=== PATIENT | female | born 1945 | race Caucasian/White ===

== ENCOUNTER 2018-10-18 09:27 | Inpatient (IN) ==
--- NOTE | 2018-10-14 10:30 | History & Physical Report ---
Date of Service October 14, 2018 Date of Surgery: 10/18/18 Assessment & Plan (1) Osteoarthritis of right knee: Risks and benefits of procedure discussed in detail today, patient would like to proceed with a right total knee replacement on 10-18-18 @ [facility] as scheduled. will obtain medical clearance prior to surgery as well as obtain PATs at [facility]. Will place on ASA 81mg po bid x 1 month post op, f/u 2 weeks post op for routine post-operative care and xray, sooner if having any problems. will make arrangements for OPPT at the time of discharge. History of Present Illness Chief Complaint: right knee pain Primary Care Provider: Jena Anders Ms Trammell is a 73 year old female who complains of right knee pain, presents for pre-op evaluation prior to a right total knee replacement at [facility] on by dr gaming. She complains of pain, crepitus, decreased range of motion, stiffness, weakness and instability on the right side. She states that the symptoms have been chronic non-traumatic. The symptoms occur constantly with intermittent worsening. Currently the patient states that the symptoms are severe. The pain is described as aching and discomforting. The symptoms occur continuously. The symptoms are aggravated by ascending stairs, descending stairs, daily activities , first steps while awake, walking, standing and weight bearing. In addition to right knee pain the patient is also experiencing crepitus, decreased mobility, joint pain, limping, loss of motion and stiffness. currently rates her pain 5/10 , worst 8/10. Prior NSAIDs include ibuprofen and aleve. Prior pain medications include Tylenol. She has had a brace or splint. Allergies Allergy/AdvReac Type Severity Reaction Status Date / Time No Known Allergies Allergy Verified 10/12/18 11:34 Home Medications Home Medications Medication Instructions Recorded Confirmed Type acetaminophen [Acetaminophen Extra 500 mg PO Q6H PRN 10/12/18 10/12/18 History Strength] Past Med/Surg History Medical History GERD (gastroesophageal reflux disease) Osteoarthritis PONV (postoperative nausea and vomiting) Surgical History History of esophagogastroduodenoscopy (EGD) Hx of abscess of breast REMOVAL OF ABCESS Hx of gastric bypass LAP GASTRIC SLEEVE Family History Father No problems noted. Mother No problems noted. Social History Current Living Situation: Alone Other Information That Helps Us Care for You: No Feels Safe at Home: Yes Safety Concerns: Feels Safe At This Time Smoking Status: Never smoker Do You Dip or Chew Tobacco: No Second Hand Exposure: No Tobacco Cessation Education Requested by Patient: No Hx Alcohol Use: Yes Alcohol type: wine Alcohol Intake Frequency: holidays/ special occasions only Hx Substance Use: No Beliefs That Will Affect Care: None Preferred Language: Swiss Communication Ability: Effective Hospital Medical Biller Required: No Review of Systems All systems reviewed & are unremarkable except as noted in HPI & below Constitutional: no fever, no chills and no sweats Respiratory: no cough and no dyspnea Cardiovascular: no chest pain, no dyspnea and no orthopnea Gastrointestinal: no abdominal pain, no nausea and no vomiting Integumentary: no rash and no lesions Endocrine: no fatigue Physical Exam 2 Vital Signs (Past 24 Hours): Ht: 5ft 8in Wt: 87.5 kg BP: 144/84 Pulse: 80 Resp: 16 Constitutional: WD/WN, vitals as above no acute distress Respiratory: normal respiratory effort, lungs clear to auscultation no respiratory distress, no labored breathing and does not use accessory muscles Cardiovascular: Rate/Rhythm: regular rate and regular rhythm Heart Sounds: + murmur (Grade II/ systolic murmur) Gastrointestinal (Abdomen): normal bowel sounds, soft, nontender, no hepatosplenomegaly Musculoskeletal: Right Knee Exam she ambulates with a limp and has overall valgus alignment, there is no atrophy , warmth, erythema or ecchymosis, +1 Effusion, diffuse tenderness to her knee, greatest lateral compartment. negative patellar apprehension , mild crepitation with motion, patella position neutral, jose rafael's negative, Posterior drawer negative, Anterior drawer negative, Valgus stress Negative, Varus stress Negative, no Extensor lag, Pain with Active range of motion; Range of motion 0/3 /115. No pain with active/passive ROM of ankle. Lower Extremity Strength normal. Lower Extremity Neuro-vascular is normal Results & Data Diagnostic Findings right knee x-ray dated 2-8-19 showing advanced tricompartmental degenerative changes, greatest lateral compartment with valgus deformity, osteopenia noted as well. findings consistent with joint space narrowing, osteophyte formation. no loose bodies noted.
--- NOTE | 2018-10-14 14:52 | Anesthesiology Consultation ---
Date of Service October 14, 2018 Assessment & Plan (1) Encounter for pre-operative examination: Plan: PCP clearance 10/17/2018: Labs chest x-ray and EKG reviewed no acute changes. At this time there is no contraindication to upcoming proposed surgery patient is medically optimized for planned procedure. Chart Review Chart Review: Acceptable Risk for Surgery and Patient seen in Pre Admission Testing Teaching & Discussion Instructed NPO after midnight before surgery, except medications with 15 cc of water. Medication instructions provided according to the PAT guidelines. History Surgery Operation Date: 10/18/18 11:55 Proposed Procedures p Right Total Knee Arthroplasty - Nash Iverson DO Height/Weight Height: 5 ft 8 in Weight: 88.8 kg Allergies Allergy/AdvReac Type Severity Reaction Status Date / Time No Known Allergies Allergy Verified 10/12/18 11:34 Medications Home Medications Medication Instructions Recorded Confirmed Last Taken acetaminophen [Acetaminophen Extra 500 mg PO Q6H PRN 10/12/18 10/12/18 Unknown Strength] Past Medical History Medical History Aortic stenosis Mild per 2017 echo GERD (gastroesophageal reflux disease) Heart palpitations With assc dizziness. Had event monitor for 1 month 04/2018 and was told WNL, no events. Most recent episode was 07/2018. Osteoarthritis Past Family History Family History Father No problems noted. Mother No problems noted. Past Surgical History Surgical History History of esophagogastroduodenoscopy (EGD) Hx of abscess of breast REMOVAL OF ABCESS Hx of gastric bypass LAP GASTRIC SLEEVE PONV (postoperative nausea and vomiting) Past Anesthesia History No Hx of Anesthesia Complications (PONV) and No Family Hx of Anesthesia Complications (PONV) History of PONV Yes Motion Sickness Screening History of Motion Sickness: No Social History Smoking Status: Former smoker Smoking cigarettes per day: H/O 2-3 CIG PER DAY Do You Dip or Chew Tobacco: No Smoking End Date: QUIT 15 YRS AGO Hx Alcohol Use: Yes Alcohol type: wine alcohol intake frequency: holidays/special occasions only Hx Substance Use: No substance use type: does not use Exercise / Class Metabolic Activity II 4-5 Yardwork/Stairs/Walk up hill (Denies CP and SOB with stairs but currently limited by pain) Review of Systems Pt denies any recent chest pain, shortness of breath, palpitations, cough, fever or URI. + "spider bite" on L calf, healing Physical Exam Vital Signs BP: 152/79 (pt seen by PCP on Wednesday and BP was WNL) P: 73bpm SPO2: 97% RA T: 98.2 F R: 16 ENMT Mouth: + dentition abnormality (two crowns that fell off of root canals), + dentures (upper and lower partials) and + small oral opening; no loose teeth Thyromental Distance: > or= 3.5 Finger Breadths (3.5) Mallampati Class: III Neck normal visual inspection; neck extension not limited 3 inch scar around L carotid is from CURLING IRON Respiratory normal respiratory effort Auscultation: lungs clear to auscultation bilaterally Cardiovascular Rate/Rhythm: regular rate and regular rhythm Heart Sounds: + murmur (II/ ADONIS loudest at RSB with radiation to B/L carotids) Vessels: + carotid bruit (radiation from ) Extremities: no edema Testing Electrocardiogram Date: 10/14/18 Findings: + NSR @ (74) Cannot rule out anterior infarct, age undetermined. *Patient was unable to lay flat for procedure 2/2 knee pain Chest X-Ray Date: 10/14/18 Findings: + NAD Echocardiogram Date: 08/24/17 EF: 60-65% Mild aortic stenosis. RADHA is 1.15 cm�, which is probably an underestimation of the true valve area. Aortic valve area is 1.41 cm� by direct planimetry. Left ventricle is normal in size, wall thickness, wall motion, and contractility. Laboratory Results 10/14/18 14:43 10/14/18 14:43 Blood Type O Positive 10/14/18 14:43 Antibody Screen NEGATIVE 10/14/18 14:43 PT 10.7 Seconds (9.0-12.0) 10/14/18 14:43 INR 1.1 (0.9-1.1) 10/14/18 14:43 APTT 27.1 Seconds (21.0-31.0) 10/14/18 14:43 Hemoglobin A1c 5.2 % (4.5-5.6) 10/14/18 14:43 Urine Color Yellow 10/14/18 14:43 Urine Appearance Clear (Clear) 10/14/18 14:43 Urine pH 7.5 (4.5-7.5) 10/14/18 14:43 Ur Specific [place] 1.024 (1.000-1.030) 10/14/18 14:43 Urine Protein Negative (Negative) 10/14/18 14:43 Urine Glucose (UA) Negative (Negative) 10/14/18 14:43 Urine Ketones Negative (Negative) 10/14/18 14:43 Urine Nitrite Negative (Negative) 10/14/18 14:43 Ur Leukocyte Esterase Negative (Negative) 10/14/18 14:43 Urine WBC (Auto) 1-5 /hpf (0-5) 10/14/18 14:43 Urine RBC (Auto) 5-10 /hpf (0-4) H 10/14/18 14:43 U Hyaline Cast (Auto) 0 /lpf (0-5) 10/14/18 14:43 U Epithel Cells (Auto) 20-30 /lpf (0-5) H 10/14/18 14:43 Urine Bacteria (Auto) Negative (Negative) 10/14/18 14:43 10/14/18 14:43 Urine Culture - Final Urine,Clean Catch More than three types of organisms present, all high counts mixed probable skin asa - No further identifications or sensitivities to follow.
--- NOTE | 2018-10-14 14:54 | PAT Medication Instructions ---
Medication Instructions Date of Service October 14, 2018 Home Medications acetaminophen [Acetaminophen Extra Strength] 500 mg PO Q6H PRN Take morning of surgery With a small sip of water, OTHERWISE NOTHING TO EAT OR DRINK AFTER MIDNIGHT: acetaminophen [Acetaminophen Extra Strength] 500 mg PO Q6H PRN (if needed, may be taken up to four hours before surgery) Other Notes If you have any questions please call us at [phone] or [phone] or [phone] or [phone]
[2018-10-14 15:52] LABS: Appearance Urine Clear (Clear); Bacteria Urine Automated Negative (Negative); Bilirubin Urine Negative (Negative); Cast Urine Automated 0 /lpf (0-5); Color Urine Yellow; Epithelial Cell Urine Auto 20-30 /lpf (0-5); Glucose Urine UA Negative (Negative); Ketones Urine Negative (Negative); Leukocyte Esterase Urine Negative (Negative); Nitrite Urine Negative (Negative); Protein Urine Negative (Negative); Specific Gravity Urine 1.024 (1.000-1.030); Urobilinogen Urine Negative (Negative); pH Urine 7.5 (4.5-7.5)
[2018-10-14 15:53] LABS: Calcium 8.6 mg/dl (8.5-10.1); Creatinine Clr Calc Pharmacy 69.8 ml/min; Est GFR (African American) 79.3; Est GFR (Non-African American) 68.5; Potassium 3.9 mmol/L (3.5-5.1)
[2018-10-14 15:56] LABS: Basophils # (auto) 0.01 K/uL (0-0.2); Basophils % (auto) 0.2 %; Eosinophils # (auto) 0.08 K/uL (0-0.5); Eosinophils % (auto) 1.4 %; Hematocrit (blood only) 39.6 % (37-47); Hemoglobin 12.2 g/dL (12.0-16.0); Immature Granulocytes # (auto) 0.02 K/uL (0.00-0.02); Immature Granulocytes % (auto) 0.3 %; Lymphocytes % (auto) 20.7 %; Mean Corpuscular Hgb Conc 30.8 g/dL (32-36); Mean Corpuscular Volume 83.2 fL (80-100); Mean Platelet Volume 9.7 fL (7.4-10.4); Monocytes # (auto) 0.46 K/uL (0.11-0.59); Monocytes % (auto) 7.9 %; Neutrophils # (auto) 4.04 K/uL (1.4-6.5); Neutrophils % (auto) 69.5 %; Platelet Count 244 K/uL (130-400); RDW Coefficient of Variation 15.1 % (11.5-14.5); RDW Standard Deviation 46.4 fL (36.4-46.3); Red Blood Count 4.76 M/uL (4.2-5.4); White Blood Count 5.81 K/uL (4.8-10.8)
[2018-10-14 15:57] LABS: INR 1.1 (0.9-1.1); Partial Thromboplastin Time 27.1 Seconds (21.0-31.0); Prothrombin Time 10.7 Seconds (9.0-12.0)
--- NOTE | 2018-10-14 15:57 | XRay Report ---
XR chest Pre-admission PA/Lat CLINICAL HISTORY: Preoperative chest COMPARISON STUDY: No previous studies for comparison. FINDINGS: The cardiac and mediastinal contours are normal. There is no evidence of focal pulmonary co nsolidation. There is no evidence of failure. No pleural effusions are visualized.[ IMPRESSION: No active disease in the chest. Electronically signed by: Tl Weston M.D. 10/14/2018 3:56 PM
[2018-10-15 06:46] LABS: Estimated Average Glucose 103 mg/dl
[~2018-10-18 09:27] MED LIST: ACETAMINOPHEN 500 MG TAB PO SCH; BUPIVACAINE 0.5 % 5 MG/1 ML PF 10ML VIAL ONE; CEFAZOLIN 2000MG 2,000 MG/15 ML SYR IV SCH; CeleBREX 200 MG CAP PO SCH; FAMOTIDINE 20 MG TAB PO SCH; GABAPENTIN 300 MG PO SCH; LR 500ML BOLUS, THEN 15ML/HR IV SCH; ROPIVACAINE 0.5% 5 MG/ML 30 ML VIAL ONE; ROPIVACAINE 0.5% HCL/PF 150 MG, BUPIVACAINE 0.5% MPF 30 ML, EPINEPHrine 30MG/30ML (OR U... INFIL SCH; TRANEXAMIC ACID 1,000 MG **IV Intra-op IV SCH; TRANEXAMIC ACID 1,000 MG **IV Pre-op IV SCH; dexAMETHasone 4 MG TAB PO SCH
[2018-10-18] MEDS ORDERED: MIDAZOLAM HCL 1 MG/ML 2ML VIAL ONE (09:39)
--- NOTE | 2018-10-18 10:24 | History & Physical Bridge Note ---
Date of Service October 18, 2018 History & Physical Bridge Note I have examined the patient, reviewed the History & Physical and in the interval since the performance of the History & Physical I have noted the following changes of clinical significance: no changes noted
[2018-10-18] MEDS ORDERED: BACITRACIN INJ 50,000 UNIT VIAL ONE (11:01)
[2018-10-18] MEDS ORDERED: POVIDONE-IODINE OP SOLN 30 ML BTL ONE (11:01)
[2018-10-18] MEDS ORDERED: ORTHO JOINT ANESTHETIC ONE (11:01)
[2018-10-18] MEDS ORDERED: DEXAMETHASONE SOD INJ 4 MG/ML VIAL ONE (12:04)
[2018-10-18] MEDS ORDERED: ONDANSETRON INJ 2 MG/ML 2 ML VIAL ONE (12:04)
[2018-10-18] MEDS ORDERED: PROPOFOL IV EMULSION 10 MG/ML 20 ML VIAL IV ONE (12:04)
[2018-10-18] MEDS ORDERED: fentaNYL citrate 100 MCG/2 ML VIAL IV PRN (12:06)
[2018-10-18] MEDS ORDERED: ATROPINE SULFATE 0.1 MG/ML 10ML SYR IV PRN (12:06)
[2018-10-18] MEDS ORDERED: ePHEDrine sulfate 50 MG/ML AMP IV PRN (12:06)
[2018-10-18] MEDS ORDERED: ONDANSETRON INJ 2 MG/ML 2 ML VIAL IV PRN ×2 (12:06→14:20)
--- NOTE | 2018-10-18 12:40 | Operative Report ---
Post Operative Report Pre & Post Diagnosis Operation Date: 10/18/18 11:55 Pre-Op Diagnosis: Unilateral Primary Osteoarthritis, Right Knee Post-Op Diagnosis: Unilateral Primary Osteoarthritis, Right Knee Procedure Operation Date: 10/18/18 11:55 Actual Procedures p Right Total Knee Arthroplasty(Right) utilizing Young [employer] Nephew journey to non- bloc total knee arthroplasty size 6 femur 6 tibia 9 polyethylene 32 oval patella - Nash Iverson DO Surgeon Nash Iverson DO Possum Trapper Jose Juan PHAM Estimated Blood Loss 5 Findings Consistent with Post-Op Diagnosis Patient presents with severe end-stage DJD valgus alignment of the right knee with [id number] lateral compartment [id number] medial compartment pseudo- ligamentous laxity due to the valgus alignment bone loss subchondral cystic changes marginal osteophytes all no response to conservative management Specimens Bone and cartilage Drains Medium bore Hemovac Complications none Disposition Accompanied Patient To Recovery: No Disposition: Recovery Room Indications Patient presents with severe end-stage DJD valgus alignment right including physical therapy anti-inflammatories manager of finance bracing corticosteroid injections Visco supplementation patient has the above significant severe valgus alignment of 10 degrees to the right knee as noted above with a subchondral cystic changes marginal osteophytes [id number] eburnation with loss of tibial bone laterally Description of Procedure After proper prepping and draping of the Right lower extremity anterior midline incision was made over the region of the extensor extensor mechanism after meticulous hemostasis was obtained and maintained in subcutaneous tissues a medial parapatellar incision was made The patella was subluxed lateralward the medial lateral gutter were cleaned from any hypertrophic synovitis and scar tissue of the distal femoral block was placed and the distal femoral osteotomy cut was made subsequently the chamfers anterior and posterior osteotomy cuts were made utilizing the 4-in-1 block the tibia was subsequently subluxed anteriorward medial and ateral meniscal remnants were excised in their entirety remnants of the anterior and posterior cruciate ligaments were excised in their entirety excellent exposure of the proximal tibia was obtained the tibial osteotomy guide was placed on the proximal tibial osteotomy cut was made once again the knee was irrigated with copious amounts of sterile saline solution the patella was subsequently everted lateralward thickened scar tissue around the patella was removed the patella was subsequently cut utilizing a freehand technique and was drilled prepared for final preparation and placement of patella socially flexion-extension gaps were checked and the equal and symmetric trials were placed to the appropriate femoral and tibial trials with poly-spacer being placed for equal flexion and extension gaps and full range of motion including extension to 0 and flexion to 140� the trial components after having been taken to recovery range of motion was subsequently removed meticulous hemostasis was obtained and maintained subsequently a knee block injection of joint cocktail including ropivacaine 0.5% 150 mg. Bupivacaine 0.5 % epinephrine 1-200,030 mL's toradol 30 mg dexamethasone 4 mg ketamine 10 mg clonidine 100 micrograms normal saline solution 30 mg was infiltrated into the soft tissues of the posterior knee medial lateral gutters and periosteal synovium special attention was paid to protect neurovascular structures at all times subsequently trial components having been removed the knee was irrigated with sterile saline solution. debris was removed the proximal tibia was subsequently prepared and was made ready for the placement of the tibial component tibial component was also cemented and tamped into position the femoral component was subsequently placed and cemented in the position the patellar component was subsequently cemented in position because hemostasis once again obtained and maintained wound having been thoroughly irrigated with debridement and debridement lavage was performed as well as a medial parapatellar incision closed with #1 Vicryl in interrupted fashion subcutaneous was closed with #2 Vicryl skin was closed with skin clips. PA-C was necessary for prepping and drapping as well as wound closure of deep fascia Sub cutaneous tissue and skin and was necessary for the case. A sterile compressive dressing was placed patient was taken to recovery in stable condition of report dictated by Kishor I attest to the content of the Intraoperative Record and any orders documented therein. Any exceptions are noted below. I attest to the content of the Intraoperative Record and any orders documented therein. Any exceptions are noted below.
--- NOTE | 2018-10-18 13:43 | XRay Report ---
XR knee RT 2V routine CLINICAL HISTORY: 73 years-old Female presenting with Surgical Post Op. TECHNIQUE: Frontal and crosstable lateral views of the right knee were obtained. COMPARISON: None. FINDINGS: Postsurgical changes of total right knee arthroplasty with patellar resurfacing. Expected intra-artic ular and soft tissue emphysema. A surgical drain is in place. Overlying skin earl. Possible underl jace osteopenia. No malalignment. Subtle lucency along the posterior distal metaphysis of the femur o n lateral view. It is difficult to exclude a subtle periprosthetic fracture.. IMPRESSION: 1. Irregularity of the posterior aspect of the distal metaphysis of the femur. Subtle periprosthetic fracture not excluded. CT of the knee could be obtained for further evaluation. 2. No other hardware complication of the postsurgical changes of the total right knee arthroplasty w ith patellar resurfacing. The report will be called/faxed according to standard departmental protocol. Electronically signed by: Nicholas Noonan M.D. 10/18/2018 1:41 PM
--- NOTE | 2018-10-18 14:15 | Anesthesiology Progress Note ---
Date of Service October 18, 2018 Anesthesia Post Procedure Vital Signs Vital Signs: Temp Pulse Pulse Resp BP BP Pulse Ox 10/18/18 14:00 72 12 132/73 99 10/18/18 13:45 37.5 C 70 12 138/73 100 10/18/18 13:35 72 12 141/74 H 100 10/18/18 13:25 74 15 134/65 99 10/18/18 13:17 37.1 C 86 16 109/66 100 10/18/18 10:32 36.9 C 77 20 171/71 H 99 Pain Intensity Right Knee: Pain Intensity: 0 Notes Mental Status: alert / awake / arousable Patient Amnestic to Procedure: Yes Nausea / Vomiting: adequately controlled Pain: adequately controlled Airway Patency, RR, SpO2: stable & adequate BP & HR: stable & adequate Hydration State: stable & adequate Neuraxial Anesthesia: was administered and sensory block is resolving Anesthetic Complications: no major complications apparent and Pt Satisfied with anesthetic care
[2018-10-18] MEDS ORDERED: METOCLOPRAMIDE HCL INJ 5 MG/ML 2 ML VIAL IV PRN (14:20)
[2018-10-18] MEDS ORDERED: HYDROmorphone INJ 0.5 MG/0.5 ML SYR IV PRN (14:20)
[2018-10-18] MEDS ORDERED: BISACODYL 10 MG SUPP PR PRN (14:20)
[2018-10-18] MEDS ORDERED: NALOXONE HCL 0.4 MG/1 ML VIAL/CARP IV PRN (14:20)
[2018-10-18] MEDS ORDERED: MAGNESIUM HYDROXIDE SUSP 30 ML UDC PO PRN (14:20)
--- NOTE | 2018-10-18 17:06 | CT Scan Report ---
RIGHT KNEE CT CT DOSE: 450.74 mGy.cm HISTORY: Abnormal x-ray. r/o periprosthetic fx TECHNIQUE: Multiaxial CT images of the right knee were performed and reformatted in the sagittal and coronal plane without the use of contrast. A dose lowering technique was utilized adhering to the pr inciples of RUDY. COMPARISON: Right knee 10/18/2018. FINDINGS: Patient is status post right total knee arthroplasty. Subtle cortical lucency along the pos terior aspect of the distal femoral metaphysis corresponding to the radiographic abnormality. This ap pears to represent a tiny nondisplaced fracture. This is approximately 1 cm proximal to the lateral f emoral condyle prosthesis. The visualized tibia and fibula are intact. No fractures within the patell a. Anterior skin earl are noted. Surgical drains are seen within the suprapatellar space. Moderate suprapatellar hemarthrosis. Scattered soft tissue gas within the knee and anterior subcutaneous hemo rrhage consistent with postoperative change. The hardware appears to be in good position. IMPRESSION: Confirmation of a tiny nondisplaced fracture along the posterior lateral aspect of the distal femoral metaphysis. Electronically signed by: Perry Laguna M.D. 10/18/2018 5:05 PM
[2018-10-18] MEDS: FERROUS GLUCONATE 324 MG TAB PO SCH (17:07)
[2018-10-18] MEDS: ACETAMINOPHEN 500 MG TAB PO SCH ×2 (17:07→21:23)
[2018-10-18] MEDS: OXYCODONE HCL IR 5 MG TAB (IMMEDIATE RELEASE) PO PRN ×2 (20:09→21:21)
[2018-10-18] MEDS: CEFAZOLIN 2000MG 2,000 MG/15 ML SYR IV SCH (20:09)
[2018-10-18] MEDS: ASPIRIN 81 MG ECTAB PO SCH (20:10)
[2018-10-18] MEDS: SENNA 8.6 MG TAB PO SCH (20:13)
[2018-10-18] MEDS: DOCUSATE SODIUM 100 MG CAP PO SCH (20:13)
[2018-10-18] MEDS: SODIUM CHLORIDE 0.9% 1000ML 1,000 ML IV SCH (20:40)
[2018-10-19] MEDS: OXYCODONE HCL IR 5 MG TAB (IMMEDIATE RELEASE) PO PRN ×4 (02:33→20:23)
[2018-10-19] MEDS: CEFAZOLIN 2000MG 2,000 MG/15 ML SYR IV SCH (03:35)
[2018-10-19] MEDS ORDERED: MICONAZOLE NITRATE POWDER 43 GM EXT PRN (05:06)
[2018-10-19] MEDS: ACETAMINOPHEN 500 MG TAB PO SCH ×3 (05:45→21:20)
[2018-10-19] MEDS: SODIUM CHLORIDE 0.9% 1000ML 1,000 ML IV SCH (05:52)
[2018-10-19 07:11] LABS: Hematocrit (blood only) 36.2 % (37-47); Hemoglobin 11.2 g/dL (12.0-16.0); Mean Corpuscular Hgb Conc 30.9 g/dL (32-36); Mean Corpuscular Volume 82.5 fL (80-100); Mean Platelet Volume 9.2 fL (7.4-10.4); Platelet Count 221 K/uL (130-400); RDW Coefficient of Variation 15.1 % (11.5-14.5); RDW Standard Deviation 45.4 fL (36.4-46.3); Red Blood Count 4.39 M/uL (4.2-5.4); White Blood Count 12.81 K/uL (4.8-10.8)
[2018-10-19 07:46] LABS: BUN Creatinine Ratio 20.5 (10-20); Calcium 8.3 mg/dl (8.5-10.1); Creatinine Clr Calc Pharmacy 66.7 ml/min; Est GFR (African American) 77.1; Est GFR (Non-African American) 66.6; Potassium 3.8 mmol/L (3.5-5.1)
--- NOTE | 2018-10-19 08:01 | Orthopedic Progress Note ---
Date of Service October 19, 2018 Assessment & Plan (1) Osteoarthritis of right knee: Postop day 1 status post right total knee arthroplasty with noted tiny cortical fracture of the posterior lateral cortex of the distal femur. X-rays and CT scans have been reviewed by Dr. Iverson. Plans will be to make the patient nonweightbearing on the right lower extremity. We will consult Hao Earl from orthotics to place a hinged [place] brace on the right lower extremity locked from 0-90 degrees so the patient can continue her range of motion protocol with her PT. This plan has been reviewed with the patient and her daughter who are in agreement. Dr. Iverson will be seeing the patient later this afternoon for recheck. DVT prophylaxis with SCDs, ANDERSON hose, aspirin twice daily Pain management with acetaminophen, oxycodone, hydromorphone. Subjective Postop day 1 status post right total knee arthroplasty. Patient is sleeping upon arrival but is easily awoken. She is pleasant and is alert and oriented. Her daughter is currently with her at this time. It was found postoperatively that she had a very small fracture noted in the posterior lateral cortex of the distal femur on plain film x-ray. A CT scan was then ordered to confirm. CT results as per below. Confirming very small cortical fracture. This was discussed in detail with the patient last night and also this morning. She and her daughter understand the plan will be laid out for due to this fracture. Currently she has no shortness of breath, chest pain, lightheadedness. She does complain of some posterior knee and slight proximal thigh pain this morning. She has no other complaints at this time. Physical Exam 2 Vital Signs (Past 24 Hours): Last Vital Signs Temp 36.9 C 10/19/18 06:59 Pulse 76 10/19/18 06:59 Resp 18 10/19/18 06:59 BP 139/79 10/19/18 06:59 Pulse Ox 97 10/19/18 06:59 Physical Exam: Dressings are clean, dry, and intact. Calves are soft and nontender. On palpation of the posterior knee and thigh, she has some mild pain that is posterior medially mainly over the thigh. Homans exam is essentially negative at this time. She has no overt swelling of the foot at this time. Hemovac drainage is 100 mL's from the previous shift. Neurovascular is intact and toes are mobile. Results & Data Laboratory Results 10/19/18 10/19/18 Range/Units 07:00 07:00 WBC 12.81 H (4.8-10.8) K/uL RBC 4.39 (4.2-5.4) M/uL Hgb 11.2 L (12.0-16.0) g/dL Hct 36.2 L (37-47) % MCV 82.5 (80-100) fL MCH 25.5 (25-34) pg MCHC 30.9 L (32-36) g/dL RDW Std Deviation 45.4 (36.4-46.3) fL RDW Coeff of Yoandy 15.1 H (11.5-14.5) % Plt Count 221 (130-400) K/uL MPV 9.2 (7.4-10.4) fL Sodium 140 (136-145) mmol/L Potassium 3.8 (3.5-5.1) mmol/L Chloride 106 (98-107) mmol/L Carbon Dioxide 27 (21-32) mmol/L Anion Gap 6.0 (3-11) BUN 18 (7-18) mg/dl Creatinine 0.87 (0.6-1.2) mg/dl Est Cr Clr Drug Dosing 66.7 ml/min Est GFR ( Amer) 77.1 Est GFR (Non-Af Amer) 66.6 BUN/Creatinine Ratio 20.5 H (10-20) Glucose 121 H (70-99) mg/dl Calcium 8.3 L (8.5-10.1) mg/dl Diagnostic Findings RIGHT KNEE CT CT DOSE: 450.74 mGy.cm HISTORY: Abnormal x-ray. r/o periprosthetic fx TECHNIQUE: Multiaxial CT images of the right knee were performed and reformatted in the sagittal and coronal plane without the use of contrast. A dose lowering technique was utilized adhering to the principles of ALARA. COMPARISON: Right knee 10/18/2018. FINDINGS: Patient is status post right total knee arthroplasty. Subtle cortical lucency along the posterior aspect of the distal femoral metaphysis corresponding to the radiographic abnormality. This appears to represent a tiny nondisplaced fracture. This is approximately 1 cm proximal to the lateral femoral condyle prosthesis. The visualized tibia and fibula are intact. No fractures within the patella. Anterior skin earl are noted. Surgical drains are seen within the suprapatellar space. Moderate suprapatellar hemarthrosis. Scattered soft tissue gas within the knee and anterior subcutaneous hemorrhage consistent with postoperative change. The hardware appears to be in good position. IMPRESSION: Confirmation of a tiny nondisplaced fracture along the posterior lateral aspect of the distal femoral metaphysis.
[2018-10-19] MEDS: FERROUS GLUCONATE 324 MG TAB PO SCH ×2 (09:20→16:31)
[2018-10-19] MEDS: MULTIVITAMIN TAB PO SCH (09:20)
[2018-10-19] MEDS: ASPIRIN 81 MG ECTAB PO SCH ×2 (09:21→20:30)
[2018-10-19] MEDS: DOCUSATE SODIUM 100 MG CAP PO SCH ×2 (09:21→20:30)
[2018-10-19] MEDS: SENNA 8.6 MG TAB PO SCH (20:30)
[2018-10-20] MEDS: ACETAMINOPHEN 500 MG TAB PO SCH ×2 (05:43→13:31)
--- NOTE | 2018-10-20 07:38 | Orthopedic Progress Note ---
Date of Service October 20, 2018 Assessment & Plan (1) Osteoarthritis of right knee: Postop day 2 status post right total knee arthroplasty with noted tiny cortical fracture of the posterior lateral cortex of the distal femur. X-rays and CT scans have been reviewed by Dr. Iverson. Plans will be to make the patient nonweightbearing on the right lower extremity. she has been fit for her brace, gentle ROM 0-90, NWB with walker/crutches. may remove the brace while not ambulating. DVT prophylaxis with SCDs, ANDERSON hose, aspirin twice daily Pain management with acetaminophen, oxycodone, hydromorphone. Plan on discharge home later today with HHPT Subjective Postop day 2 status post right total knee arthroplasty. she denies CP/SOB, denies fever/chills, denies N/V Physical Exam 2 Vital Signs (Past 24 Hours): Last Vital Signs Temp 36.8 C 10/20/18 06:56 Pulse 78 10/20/18 06:56 Resp 18 10/20/18 06:56 BP 108/67 10/20/18 06:56 Pulse Ox 95 10/20/18 06:56 Constitutional: WD/WN, vitals as above no acute distress Musculoskeletal: Right lower extremity: NVDI, calf SNT, negative abram sign. DP palpable, able to wiggle toes/ankle movement without difficulty. dressing clean dry and intact. expected post-operative bruising noted. Results & Data Laboratory Results Laboratory Results WBC 12.81 K/uL (4.8-10.8) H 10/19/18 07:00 RBC 4.39 M/uL (4.2-5.4) 10/19/18 07:00 Hgb 11.2 g/dL (12.0-16.0) L 10/19/18 07:00 Hct 36.2 % (37-47) L 10/19/18 07:00 MCV 82.5 fL (80-100) 10/19/18 07:00 MCH 25.5 pg (25-34) 10/19/18 07:00 MCHC 30.9 g/dL (32-36) L 10/19/18 07:00 RDW Std Deviation 45.4 fL (36.4-46.3) 10/19/18 07:00 RDW Coeff of Yoandy 15.1 % (11.5-14.5) H 10/19/18 07:00 Plt Count 221 K/uL (130-400) 10/19/18 07:00 MPV 9.2 fL (7.4-10.4) 10/19/18 07:00 Immature Gran % (Auto) 0.3 % 10/14/18 14:43 Neut % (Auto) 69.5 % 10/14/18 14:43 Lymph % (Auto) 20.7 % 10/14/18 14:43 Dewitt % (Auto) 7.9 % 10/14/18 14:43 Eos % (Auto) 1.4 % 10/14/18 14:43 Baso % (Auto) 0.2 % 10/14/18 14:43 Immature Gran # (Auto) 0.02 K/uL (0.00-0.02) 10/14/18 14:43 Neut # (Auto) 4.04 K/uL (1.4-6.5) 10/14/18 14:43 Lymph # (Auto) 1.20 K/uL (1.2-3.4) 10/14/18 14:43 Dewitt # (Auto) 0.46 K/uL (0.11-0.59) 10/14/18 14:43 Eos # (Auto) 0.08 K/uL (0-0.5) 10/14/18 14:43 Baso # (Auto) 0.01 K/uL (0-0.2) 10/14/18 14:43 PT 10.7 Seconds (9.0-12.0) 10/14/18 14:43 INR 1.1 (0.9-1.1) 10/14/18 14:43 APTT 27.1 Seconds (21.0-31.0) 10/14/18 14:43 PTT Ratio 1.0 10/14/18 14:43 Sodium 140 mmol/L (136-145) 10/19/18 07:00 Potassium 3.8 mmol/L (3.5-5.1) 10/19/18 07:00 Chloride 106 mmol/L (98-107) 10/19/18 07:00 Carbon Dioxide 27 mmol/L (21-32) 10/19/18 07:00 Anion Gap 6.0 (3-11) 10/19/18 07:00 BUN 18 mg/dl (7-18) 10/19/18 07:00 Creatinine 0.87 mg/dl (0.6-1.2) 10/19/18 07:00 Est Cr Clr Drug Dosing 66.7 ml/min 10/19/18 07:00 Est GFR ( Amer) 77.1 10/19/18 07:00 Est GFR (Non-Af Amer) 66.6 10/19/18 07:00 BUN/Creatinine Ratio 20.5 (10-20) H 10/19/18 07:00 Glucose 121 mg/dl (70-99) H 10/19/18 07:00 Estimat Average Glucose 103 mg/dl 10/14/18 14:43 Hemoglobin A1c 5.2 % (4.5-5.6) 10/14/18 14:43 Calcium 8.3 mg/dl (8.5-10.1) L 10/19/18 07:00 Urine Color Yellow 10/14/18 14:43 Urine Appearance Clear (Clear) 10/14/18 14:43 Urine pH 7.5 (4.5-7.5) 10/14/18 14:43 Ur Specific Irma 1.024 (1.000-1.030) 10/14/18 14:43 Urine Protein Negative (Negative) 10/14/18 14:43 Urine Glucose (UA) Negative (Negative) 10/14/18 14:43 Urine Ketones Negative (Negative) 10/14/18 14:43 Urine Blood Trace (Negative) H 10/14/18 14:43 Urine Nitrite Negative (Negative) 10/14/18 14:43 Urine Bilirubin Negative (Negative) 10/14/18 14:43 Urine Urobilinogen Negative (Negative) 10/14/18 14:43 Ur Leukocyte Esterase Negative (Negative) 10/14/18 14:43 Urine WBC (Auto) 1-5 /hpf (0-5) 10/14/18 14:43 Urine RBC (Auto) 5-10 /hpf (0-4) H 10/14/18 14:43 U Hyaline Cast (Auto) 0 /lpf (0-5) 10/14/18 14:43 U Epithel Cells (Auto) 20-30 /lpf (0-5) H 10/14/18 14:43 Urine Bacteria (Auto) Negative (Negative) 10/14/18 14:43 Blood Type O Positive 10/14/18 14:43 Antibody Screen NEGATIVE 10/14/18 14:43 Vital Signs Temp 36.8 C 10/20/18 06:56 Pulse 78 10/20/18 06:56 Resp 18 10/20/18 06:56 BP 108/67 10/20/18 06:56 Pulse Ox 95 10/20/18 06:56 Intake & Output 10/19/18 10/20/18 10/20/18 18:59 06:59 18:59 Intake Total 200 / 200 Output Total 125 / 125 80 / 80 Balance -125 / -125 120 / 120 Intake: Oral 200 / 200 Output: Drain Output 125 / 125 80 / 80 Right Knee 125 / 125 80 / 80 Other: # Unmeasured Voids 4 Diagnostic Findings RIGHT KNEE CT CT DOSE: 450.74 mGy.cm HISTORY: Abnormal x-ray. r/o periprosthetic fx TECHNIQUE: Multiaxial CT images of the right knee were performed and reformatted in the sagittal and coronal plane without the use of contrast. A dose lowering technique was utilized adhering to the principles of ALARA. COMPARISON: Right knee 10/18/2018. FINDINGS: Patient is status post right total knee arthroplasty. Subtle cortical lucency along the posterior aspect of the distal femoral metaphysis corresponding to the radiographic abnormality. This appears to represent a tiny nondisplaced fracture. This is approximately 1 cm proximal to the lateral femoral condyle prosthesis. The visualized tibia and fibula are intact. No fractures within the patella. Anterior skin earl are noted. Surgical drains are seen within the suprapatellar space. Moderate suprapatellar hemarthrosis. Scattered soft tissue gas within the knee and anterior subcutaneous hemorrhage consistent with postoperative change. The hardware appears to be in good position. IMPRESSION: Confirmation of a tiny nondisplaced fracture along the posterior lateral aspect of the distal femoral metaphysis.
[2018-10-20] MEDS: OXYCODONE HCL IR 5 MG TAB (IMMEDIATE RELEASE) PO PRN ×2 (07:51→12:14)
[2018-10-20] MEDS: ASPIRIN 81 MG ECTAB PO SCH (07:52)
[2018-10-20] MEDS: MULTIVITAMIN TAB PO SCH (07:52)
[2018-10-20] MEDS: FERROUS GLUCONATE 324 MG TAB PO SCH (07:52)
[2018-10-20] MEDS: DOCUSATE SODIUM 100 MG CAP PO SCH (07:53)
--- NOTE | 2018-10-22 12:38 | Discharge Summary ---
DISCHARGE DIAGNOSIS: Degenerative joint disease, right knee. SECONDARY DIAGNOSES: Gastroesophageal reflux disease, osteoarthritis. CONSULTS: None. COMPLICATIONS: None. PROCEDURES: Right total knee arthroplasty performed by Dr. Iverson on 10/18/2018. BRIEF HISTORY: As dictated in the history and physical. HOSPITAL SUMMARY: The patient was admitted on the above-noted date and had the above-noted surgery performed which she tolerated well. On the first postoperative day, she was sleeping upon arrival, but was easily awoken. She was pleasant, alert and oriented. Daughter was currently with her at that time and it was found that she had had a very small fracture noted in the posterior lateral cortex of the distal femur on plain film x-rays. CT scan was then ordered to confirm. CT results were noted as showing a tiny nondisplaced fracture along the posterior lateral aspect of the distal femoral metaphysis. This was discussed in detail with the patient and they understand the plan that was laid out for treatment. She had no shortness of breath, no chest pain, no lightheadedness. Her pain was controlled. She did have some slight posterior thigh pain that morning, but no other complaints. Dressings clean, dry and intact. Calves were soft and nontender. On palpation to the posterior knee and thigh, she had some mild pain that was posterior medial, but mainly over the thigh. Homans' exam was essentially negative. She had no overt swelling of the foot at time. Hemovac drainage was 100 mL from previous shift. Neurovascularly intact. Toes were mobile. Hemoglobin was 11.2 and she was started on physical therapy protocol and continued on DVT prophylaxis and pain management. Plans were to keep her nonweightbearing at this time and a [place] brace was ordered for the patient to be locked from 0-90 degrees. By her second postoperative day, she had no complaints and pain was controlled. Vital signs were stable. She was afebrile. Neurovascular was intact. Calves were soft, nontender. Toes were mobile. Dressings clean, dry and intact. She was continued on her PT protocol. She was progressing well with her nonweightbearing status and gentle range of motion of the knee from 0-90. Plans were to remove the brace when not ambulating. She was otherwise remaining stable and it was felt she could be discharged to home with home health services on 10/20/2018. For further review, please see chart. LABORATORY AND X-RAY DATA: As per chart. DISCHARGE INSTRUCTIONS: The patient was discharged to home in satisfactory condition on 10/20/2018. Diet: Regular. Activity: Nonweightbearing in the right lower extremity with use of brace. Follow TK instruction sheets and special care instructions as noted and follow up with Dr. Iverson in 2 weeks. The patient is to call for appointment if one has not been made for you. DISCHARGE MEDICATIONS: Acetaminophen 1000 mg p.o. q. 8 hours, aspirin 81 mg p.o. b.i.d., cefadroxil 500 mg p.o. b.i.d., Celebrex 200 mg p.o. b.i.d., Colace 100 mg p.o. b.i.d. and oxycodone 5-10 mg p.o. q. 4 hours p.r.n. Stop taking previous acetaminophen dosage and ibuprofen.
== END 2018-10-20 13:54 | disposition home health service (06) ==
LOC: ASU 09:27 → 3E 14:18